=== PATIENT | male | born 1980 | race Hispanic/Latino ===

== ENCOUNTER 2022-06-28 22:08 | Emergency (ER) | payer BC ==
[~2022-06-28] VITALS: Ht 177.8 cm; Wt 138.8 kg
[2022-06-28 22:37] LABS: BASOPHILS % (AUTO) 0.6 % (0.0-5.0); EOSINOPHILS % (AUTO) 1.8 % (0.0-8.0); HEMATOCRIT 45.5 % (42-54); MEAN CORPUSCULAR HEMOGLOBIN 28.8 pg (27.0-33.0); MEAN CORPUSCULAR HGB CONC 33.4 g/dL (32.0-36.0); MEAN CORPUSCULAR VOLUME 86.3 fL (79-99); MONOCYTES % (AUTO) 8.3 % (3.0-13.0); NEUTROPHILS % (AUTO) 66.4 % (40.0-77.0); PLATELET COUNT (AUTO) 203 K/uL (130-400); RED BLOOD CELL COUNT(AUTO) 5.27 MIL/uL (4.50-6.20); RED CELL DISTRIBUTION WIDTH 14.3 % (11.0-15.5); WHITE BLOOD COUNT (AUTO) 7.8 K/uL (4.8-10.8)
[2022-06-28 22:47] LABS: INR 0.98 (0.85-1.15); PROTHROMBIN TIME 10.7 SEC (9.6-11.6)
[2022-06-28 22:49] LABS: PARTIAL THROMBOPLASTIN TIME 26.9 SEC (26.3-35.5)
[2022-06-28 22:51] LABS: ALBUMIN 3.9 g/dL (3.5-5.0); POTASSIUM 3.7 mmol/L (3.5-5.1)
[2022-06-29] MEDS ORDERED: AMOX/CLAV 875/125MG TAB PO ONE (00:30)
[2022-06-29] MEDS ORDERED: SOLU-MEDROL 125MG VIAL IVP ONE (00:30)
[2022-06-29 02:11] VITALS: BP 132/65
[2022-06-29] MEDS ORDERED: PRED20TA3 PO (02:20)
[2022-06-29] MEDS ORDERED: AMOX1TAB16 PO (02:20)
== END 2022-06-29 02:31 | disposition home or self-care (01) ==
LOC: EDH 22:08
DX: G51.0 Bell's palsy (principal); H66.92 Otitis media, unspecified, left ear; E78.00 Pure hypercholesterolemia, unspecified; E11.9 Type 2 diabetes mellitus without complications
CPT/HCPCS: 99284; 80053; 85025; 85610; 85730; 82948; 36415; 96374; J2930